=== PATIENT | male | born 1960 | race Caucasian/White ===

== ENCOUNTER 2016-10-17 21:58 | Emergency (ER) | payer MEDICARE, MEDICAID ==
[2016-10-17] MEDS ORDERED: LORAZEPAM 2 MG/ML VIAL ONE (23:35)
[2016-10-18] MEDS ORDERED: LORAZEPAM 2 MG/ML VIAL ONE (00:47)
== END 2016-10-18 02:08 | disposition home or self-care (01) ==
LOC: ER 21:58
DX: R06.00 Dyspnea, unspecified (principal); R07.2 Precordial pain; R07.89 Other chest pain; F45.8 Other somatoform disorders; F41.1 Generalized anxiety disorder; J44.9 Chronic obstructive pulmonary disease, unspecified; I10 Essential (primary) hypertension; Z79.82 Long term (current) use of aspirin; Z87.891 Personal history of nicotine dependence
CPT/HCPCS: 36415; 71020; 80053; 82553; 83880; 84484; 85025; 93005; 96374; 96376

== ENCOUNTER 2016-10-24 20:06 | Emergency (ER) | payer MEDICARE, MEDICAID ==
[2016-10-24] MEDS ORDERED: KETOROLAC 60 MG/2 ML VIAL IM ONE (21:34)
== END 2016-10-24 23:34 | disposition home or self-care (01) ==
LOC: ER 20:06
DX: M25.551 Pain in right hip (principal); M25.561 Pain in right knee; M25.571 Pain in right ankle and joints of right foot; M79.651 Pain in right thigh; M79.661 Pain in right lower leg; M79.671 Pain in right foot
CPT/HCPCS: 72100; 84550; 93971; 96372

== ENCOUNTER 2016-10-26 05:50 | Emergency (ER) | payer MEDICARE, MEDICAID ==
[2016-10-26] MEDS ORDERED: CEFTRIAXONE 1 GM VIAL ONE (06:30)
[2016-10-26] MEDS ORDERED: SODIUM CHLORIDE 0.9% 100 ML IV ONE (06:31)
== END 2016-10-26 07:25 | disposition home or self-care (01) ==
LOC: ER 05:50
DX: J18.9 Pneumonia, unspecified organism (principal); J44.1 Chronic obstructive pulmonary disease with (acute) exacerbation; I10 Essential (primary) hypertension; Z79.82 Long term (current) use of aspirin; F17.200 Nicotine dependence, unspecified, uncomplicated
CPT/HCPCS: 71010; 80053; 82550; 83735; 84484; 85025; 85610; 85730; 93005; 96365; 99285; J0696